=== PATIENT | male | born 1960 | race Caucasian/White ===

== ENCOUNTER 2018-06-01 07:55 | Emergency (ER) | payer SELFPAY | END 2018-06-01 09:27 | disposition home or self-care (01) | LOC: FTE 07:55 | DX: M54.6 Pain in thoracic spine (principal) | CPT/HCPCS: 71046; 99283-25 ==

== ENCOUNTER 2018-06-11 16:54 | Emergency (ER) | payer MEDICAID | END 2018-06-11 19:14 | disposition home or self-care (01) | LOC: FTE 16:54 | DX: Z76.0 Encounter for issue of repeat prescription (principal) | CPT/HCPCS: 99281; Z7502 ==